=== PATIENT | male | born 1975 | race Hispanic/Latino ===

== ENCOUNTER 2023-09-15 05:59 | Day surgery (SDC) | payer BC ==
[2023-09-12 09:44] LABS: BASOPHILS # (AUTO) 0.05 K/uL (0.00-0.20); BASOPHILS % (AUTO) 0.8 % (0.0-5.0); EOSINOPHILS # (AUTO) 0.32 K/uL (0.00-0.70); EOSINOPHILS % (AUTO) 5.1 % (0.0-8.0); IMMATURE GRANULOCYTE ABSOLUTE 0.01 K/uL (0-1); LYMPHOCYTES # (AUTO) 2.7 K/uL (1.0-4.8); LYMPHOCYTES % (AUTO) 43.6 % (21.0-51.0); MEAN CORPUSCULAR HGB CONC 34.2 g/dL (32.0-36.0); MEAN CORPUSCULAR VOLUME 93.4 fL (79-99); MONOCYTES # (AUTO) 0.5 K/uL (0.1-1.0); MONOCYTES % (AUTO) 8.4 % (3.0-13.0); NEUTROPHILS # (AUTO) 2.6 K/uL (1.8-7.7); NEUTROPHILS % (AUTO) 41.9 % (40.0-77.0); PLATELET COUNT (AUTO) 320 K/uL (130-400); RED BLOOD CELL COUNT(AUTO) 4.82 MIL/uL (4.50-6.20); RED CELL DISTRIBUTION WIDTH 12.1 % (11.0-15.5); WHITE BLOOD COUNT (AUTO) 6.3 K/uL (4.8-10.8)
[2023-09-12 09:56] VITALS: BP 141/96; PULSE 58; RESP 17
[2023-09-12 10:19] LABS: INR < 0.93 (0.85-1.15); PROTHROMBIN TIME 10.8 SEC (9.6-11.6)
[2023-09-12 10:21] LABS: PARTIAL THROMBOPLASTIN TIME 27.9 SEC (26.3-35.5)
[2023-09-15] VITALS (13 sets, daily range): BP systolic 109–132; BP diastolic 78–95; PULSE 54–66; RESP 15–20
[~2023-09-15] VITALS: Ht 157.5 cm; Wt 85.4 kg
[~2023-09-15 05:59] MED LIST: CETI10CA5 PO; LOSA50TA64 PO; ROSU5TAB12 PO; vitamin b PO; vitamin d PO
[2023-09-15] MEDS ORDERED: CEFAZOLIN SODIUM 2 GM VIAL ONE (06:15)
[2023-09-15] MEDS ORDERED: LACTATED RINGERS 1000ML 1,000 ML IV ONE (06:15)
[2023-09-15] MEDS ORDERED: MIDAZOLAM HCL 1 MG/ML 2ML VIAL ONE ×2 (07:00→07:41)
[2023-09-15] MEDS ORDERED: FENTANYL CITRATE PF 50 MCG/1 ML 2ML VIAL ONE ×2 (07:01→07:39)
[2023-09-15] MEDS ORDERED: LIDOCAINE HCL-MPF 0.5% 50ML VIAL IJ ONE (07:03)
[2023-09-15] MEDS ORDERED: CEFAZOLIN SODIUM 2 GM VIAL IVPB ONE (07:19)
[2023-09-15] MEDS ORDERED: ONDANSETRON 4MG INJ ONE (07:40)
== END 2023-09-15 09:15 | disposition home or self-care (01) ==
LOC: DAH 05:59
PROVIDERS: ATTEND Neurological Surgery
DX: G56.01 Carpal tunnel syndrome, right upper limb (principal); I10 Essential (primary) hypertension; Z79.899 Other long term (current) drug therapy; Z79.01 Long term (current) use of anticoagulants
CPT/HCPCS: 36415; 85025; 85730; 85610; 64721; A6260; A4663; J7120; J3010 ×2; J2250 ×2; J2405; J3490; J0690 ×2; A4215; A4223; A4222; A4216; A4221; A4600; A4510

== ENCOUNTER 2023-10-09 16:35 | Emergency (ER) | payer BC ==
[~2023-10-09] VITALS: Ht 157.5 cm; Wt 88.5 kg
[2023-10-09] MEDS ORDERED: VALA100031 PO (18:10)
[2023-10-09] MEDS ORDERED: PRED20TA3 PO (18:10)
[2023-10-09 18:17] VITALS: BP 142/89; PULSE 80; RESP 17; O2SAT 98
== END 2023-10-09 18:22 | disposition home or self-care (01) ==
LOC: EDH 16:35
DX: G51.0 Bell's palsy (principal); I10 Essential (primary) hypertension; E78.00 Pure hypercholesterolemia, unspecified; Z79.899 Other long term (current) drug therapy
CPT/HCPCS: 82948

== ENCOUNTER 2023-10-25 05:58 | Day surgery (SDC) | payer BC ==
[2023-10-24 11:36] LABS: BASOPHILS # (AUTO) 0.05 K/uL (0.00-0.20); BASOPHILS % (AUTO) 0.7 % (0.0-5.0); EOSINOPHILS # (AUTO) 0.22 K/uL (0.00-0.70); EOSINOPHILS % (AUTO) 2.9 % (0.0-8.0); HEMATOCRIT 46.1 % (42-54); IMMATURE GRANULOCYTE ABSOLUTE 0.04 K/uL (0-1); LYMPHOCYTES % (AUTO) 39.9 % (21.0-51.0); MEAN CORPUSCULAR HEMOGLOBIN 32.8 pg (27.0-33.0); MEAN CORPUSCULAR HGB CONC 34.3 g/dL (32.0-36.0); MEAN CORPUSCULAR VOLUME 95.6 fL (79-99); MONOCYTES # (AUTO) 0.6 K/uL (0.1-1.0); MONOCYTES % (AUTO) 8.4 % (3.0-13.0); NEUTROPHILS # (AUTO) 3.6 K/uL (1.8-7.7); NEUTROPHILS % (AUTO) 47.6 % (40.0-77.0); PLATELET COUNT (AUTO) 225 K/uL (130-400); RED BLOOD CELL COUNT(AUTO) 4.82 MIL/uL (4.50-6.20); RED CELL DISTRIBUTION WIDTH 12.9 % (11.0-15.5); WHITE BLOOD COUNT (AUTO) 7.5 K/uL (4.8-10.8)
[2023-10-24 11:45] LABS: CREATININE 0.9 mg/dL (0.5-1.5); POTASSIUM 4.3 mmol/L (3.5-5.1)
[2023-10-24 12:18] VITALS: BP 177/108; PULSE 60; RESP 16
[2023-10-24 12:24] VITALS: BP 146/95
[2023-10-25] VITALS (12 sets, daily range): BP systolic 115–137; BP diastolic 76–95; PULSE 61–78; RESP 15–18
[~2023-10-25] VITALS: Ht 157.5 cm; Wt 86.5 kg
[~2023-10-25 05:58] MED LIST changes: -CETI10CA5 PO; +MONT-39 PO
[2023-10-25] MEDS ORDERED: LACTATED RINGERS 1000ML 1,000 ML IV ONE (06:28)
[2023-10-25] MEDS ORDERED: CEFAZOLIN SODIUM 2 GM VIAL ONE (06:28)
[2023-10-25] MEDS ORDERED: LIDOCAINE HCL-MPF 0.5% 50ML VIAL IJ ONE (06:53)
[2023-10-25] MEDS ORDERED: FENTANYL CITRATE PF 50 MCG/1 ML 2ML VIAL ONE ×2 (07:47→08:34)
[2023-10-25] MEDS ORDERED: MIDAZOLAM HCL 1 MG/ML 2ML VIAL ONE (07:47)
[2023-10-25] MEDS ORDERED: ONDANSETRON 4MG INJ ONE (08:46)
== END 2023-10-25 10:10 | disposition home or self-care (01) ==
LOC: DAH 05:58
PROVIDERS: ATTEND Neurological Surgery
DX: G56.02 Carpal tunnel syndrome, left upper limb (principal); I10 Essential (primary) hypertension; E66.9 Obesity, unspecified; Z79.01 Long term (current) use of anticoagulants; Z79.899 Other long term (current) drug therapy
CPT/HCPCS: 80048; 85025; 36415; 64721; A6260; A4663; J7120; J3010 ×2; J2250; J2405; J3490; J0690; A4215; A4223; A4222; A4221; A4600